=== PATIENT | male | born 1985 | race African-American/Black ===

== ENCOUNTER 2018-03-15 05:18 | Emergency (ER) | payer OTHER ==
[~2018-03-15] VITALS: Ht 188 cm; Wt 74.8 kg
[2018-03-15] MEDS ORDERED: NORFLEX100 MG PO (05:55)
[2018-03-15] MEDS ORDERED: NAPROSYN500 MG PO (05:55)
[2018-03-15 07:22] VITALS: BP 130/98
== END 2018-03-15 07:25 | disposition home or self-care (01) ==
LOC: ER 05:18
DX: M25.572 Pain in left ankle and joints of left foot (principal); M25.571 Pain in right ankle and joints of right foot; M25.561 Pain in right knee; S13.4XXA Sprain of ligaments of cervical spine, initial encounter; F17.210 Nicotine dependence, cigarettes, uncomplicated; W19.XXXA Unspecified fall, initial encounter; Y93.89 Activity, other specified; Y92.89 Other specified places as the place of occurrence of the external cause; Y99.8 Other external cause status

== ENCOUNTER 2019-01-22 07:02 | Emergency (ER) | payer OTHER ==
[~2019-01-22] VITALS: Ht 188 cm; Wt 77.1 kg
[~2019-01-22 07:02] MED LIST: NAPROSYN500 MG PO; NORFLEX100 MG PO
[2019-01-22] MEDS ORDERED: NORCO 5-325 TA1 EAC1 PO (07:09)
[2019-01-22] MEDS ORDERED: TAMSULOSIN HCL0.4 MG PO (07:09)
[2019-01-22] MEDS ORDERED: NEURONTIN 300300 M1 PO (07:09)
[2019-01-22 08:09] LABS: HEMATOCRIT 41.3 % (42.0-52.0); HEMOGLOBIN 13.7 gm/dL (14.0-18.0); MCH 32.2 pg (26.0-34.0); MCHC 33.2 g/dL (28.0-37.0); RBC 4.26 mil/uL (4.50-6.00); RDW 13.9 % (10.5-14.5); WBC 9.5 thou/uL (4.0-11.0)
[2019-01-22 08:11] LABS: CALCIUM 8.6 mg/dL (8.5-10.1); CREATININE 0.8 mg/dL (0.7-1.3); POTASSIUM 3.4 mmol/L (3.5-5.1)
[2019-01-22 08:17] LABS: ALBUMIN 3.7 g/dL (3.4-5.0); TOTAL BILIRUBIN 0.5 mg/dL (<0.1-1.0); TOTAL PROTEIN 7.6 g/dL (6.4-8.2)
[2019-01-22 08:23] LABS: URINE BILIRUBIN NEGATIVE (Negative); URINE BLOOD NEGATIVE (Negative); URINE CLARITY CLEAR; URINE COLOR YELLOW; URINE GLUCOSE-RANDOM* NEGATIVE (Negative); URINE KETONES NEGATIVE (Negative); URINE LEUKOCYTES-REFLEX NEGATIVE (Negative); URINE PROTEIN (DIPSTICK) NEGATIVE (Negative); URINE SPECIFIC GRAVITY >= 1.030 (1.005-1.035); URINE UROBILINOGEN 0.2 E.U./dl (0.2-1.0)
[2019-01-22 08:24] LABS: URINE NITRITE-REFLEX POSITIVE (Negative)
[2019-01-22 08:57] LABS: CASTS None Seen /LPF (None Seen); SQUAMOUS None Seen /LPF (0-3)
[2019-01-22 08:58] LABS: BACTERIA-REFLEX 1-9 Few /HPF (None Seen); CRYSTALS None Seen /LPF (None Seen); URINE RBC None Seen /HPF (0-2); URINE WBC-REFLEX 0-5 Rare /HPF (0-5)
[2019-01-22] MEDS ORDERED: ONDANSETRON ODT8 MG PO (09:19)
[2019-01-22] MEDS ORDERED: NAPROXEN375 MG PO (09:19)
[2019-01-22 09:36] VITALS: BP 130/86
== END 2019-01-22 10:03 | disposition home or self-care (01) ==
LOC: ER 07:02
PROVIDERS: Emergency Medicine
DX: S83.8X1A Sprain of other specified parts of right knee, initial encounter (principal); S83.8X2A Sprain of other specified parts of left knee, initial encounter; S93.491A Sprain of other ligament of right ankle, initial encounter; R11.2 Nausea with vomiting, unspecified; R42 Dizziness and giddiness; F17.210 Nicotine dependence, cigarettes, uncomplicated; W18.39XA Other fall on same level, initial encounter; Y92.89 Other specified places as the place of occurrence of the external cause; Y93.89 Activity, other specified; Y99.8 Other external cause status